=== PATIENT | female | born 1995 ===

== ENCOUNTER 2025-05-26 05:56 | Emergency (ER) | payer SELFPAY ==
[~2025-05-26] VITALS: Ht 167.6 cm; Wt 75.0 kg
[2025-05-26 05:58] VITALS: BP 125/76; TEMP 97.1; O2SAT 100
== END 2025-05-26 06:17 | disposition left against medical advice (07) ==
LOC: M ED 05:56
DX: Z53.21 Procedure and treatment not carried out due to patient leaving prior to being seen by health care provider (principal)